=== PATIENT | male | born 1975 ===

== ENCOUNTER 2017-12-18 15:24 | Emergency (ER) | payer MEDICAID ==
[2017-12-18 15:30] VITALS: BP 139/87; PULSE 99; RESP 16; TEMP 97.8; O2SAT 97
--- NOTE | 2017-12-18 15:46 | ED PDOC ---
Upper Extremity Pain/Injury Time Seen by Provider: 12/18/17 15:30 Chief Complaint (Nursing): Upper Extremity Problem/Injury Chief Complaint (Provider): Left elbow pain History Per: Patient History/Exam Limitations: no limitations Onset/Duration Of Symptoms: Days (x3 weeks) Current Symptoms Are (Timing): Still Present Quality: "Pain" Exacerbating Factor(s): Movement Additional Complaint(s): Froilan Saab is a 42 year old male, with no significant past medical history, who presents to the emergency department complaining of left elbow pain onset for x2 weeks. Patient reports he has torn muscles before, and states the pain feels similar. He did not take any pain medications. He denies any trauma or repetitive motion. No further medical complaints. PMD: None provided. Past Medical History Reviewed: Historical Data, Nursing Documentation, Vital Signs Vital Signs: Last Vital Signs Temp 97.8 F 12/18/17 15:28 Pulse 99 H 12/18/17 15:28 Resp 16 12/18/17 15:28 BP 139/87 12/18/17 15:28 Pulse Ox 97 12/18/17 15:28 - Medical History PMH: Asthma Denies: Chronic Kidney Disease - Surgical History Surgical History: No Surg Hx - Family History Family History: States: Unknown Family Hx - Immunization History Hx Tetanus Toxoid Vaccination: No Hx Influenza Vaccination: No Hx Pneumococcal Vaccination: No - Home Medications Home Medications: Ambulatory Orders Medication Instructions Recorded Citalopram Hydrobromide 40 mg PO DAILY 10/30/16 [Citalopram HBr] Prazosin HCl [Minipress] 1 mg PO DAILY 10/30/16 Quetiapine Fumarate [Seroquel] 50 mg PO HS 10/30/16 Quetiapine Fumarate [Seroquel] 100 mg PO HS 10/30/16 hydrOXYzine HCl [Atarax] 50 mg PO Q6 PRN 10/30/16 Naproxen 1 tab PO Q12 PRN #14 tab 12/18/17 - Allergies Allergies/Adverse Reactions: Allergies Allergy/AdvReac Type Severity Reaction Status Date / Time No Known Allergies Allergy Verified 10/30/16 04:02 Review of Systems ROS Statement: Except As Marked, All Systems Reviewed And Found Negative Musculoskeletal: Positive for: Arm Pain (left elbow) Physical Exam - Reviewed Nursing Documentation Reviewed: Yes Vital Signs Reviewed: Yes - Physical Exam Appears: Positive for: Well, Non-toxic, No Acute Distress Head Exam: Positive for: ATRAUMATIC, NORMAL INSPECTION, NORMOCEPHALIC Skin: Positive for: Normal Color, Warm, Dry Eye Exam: Positive for: Normal appearance Neck: Positive for: Painless ROM Respiratory: Negative for: Respiratory Distress Extremity: Positive for: Normal ROM (flex & extend w/ pain), Tenderness (b/l epicondyle. No erythema or effusion. ). Negative for: Deformity, Swelling Neurologic/Psych: Positive for: Alert, Oriented - ECG O2 Sat by Pulse Oximetry: 97 (RA) Pulse Ox Interpretation: Normal - Progress ED Course And Treament: elbow xry: no fracture Medical Decision Making Medical Decision Making: Initial Impression: Elbow pain Initial Plan: --Elbow left 3 views routine [RAD] --reevaluation ~ Scribe Attestation: Documented by Albaro Rodarte, acting as a scribe for Cordelia Carlson PA-C. Provider Scribe Attestation: All medical record entries made by the Scribe were at my direction and personally dictated by me. I have reviewed the chart and agree that the record accurately reflects my personal performance of the history, physical exam, medical decision making, and the department course for this patient. I have also personally directed, reviewed, and agree with the discharge instructions and disposition. Disposition - Clinical Impression Clinical Impression: Lateral epicondylitis - Patient ED Disposition Is Patient to be Admitted: No - Disposition Referrals: Deloris King MD [Staff Provider] - Disposition: Routine/Home Disposition Time: 16:10 Condition: FAIR Prescriptions: Naproxen 1 tab PO Q12 PRN #14 tab PRN Reason: Pain, Moderate (4-7) Instructions: Tennis Elbow (ED) Forms: [employer] (Lithuanian), [employer] ED School/Work Excuse
--- NOTE | 2017-12-18 16:40 | RAD ---
PROCEDURE: Radiographs of the left elbow. HISTORY: ELBOW PAIN COMPARISON: No prior. FINDINGS: BONES: Normal. No fracture. JOINTS: Normal. No osteoarthritis. SOFT TISSUES: Normal. JOINT EFFUSION: None. OTHER FINDINGS: None IMPRESSION: Unremarkable radiographs of the left elbow.
== END 2017-12-18 16:16 | disposition home or self-care (01) ==
LOC: H.ER 15:24
DX: M77.12 Lateral epicondylitis, left elbow (principal); J45.909 Unspecified asthma, uncomplicated

== ENCOUNTER 2018-03-02 16:35 | Emergency (ER) | payer MEDICAID ==
[2018-03-02 16:43] VITALS: BP 132/94; PULSE 95; RESP 16; TEMP 98.4; O2SAT 99
--- NOTE | 2018-03-02 18:01 | ED PDOC ---
HPI: Skin/Bite Injury Time Seen by Provider: 03/02/18 17:35 Chief Complaint (Nursing): Abnormal Skin Integrity Chief Complaint (Provider): Skin Tag History Per: Patient History/Exam Limitations: no limitations Onset/Duration Of Symptoms: Days Current Symptoms Are (Timing): Still Present Quality Of Symptoms: Painful Additional Complaint(s): 42 y/o male presents to the ED with a skin tag in the upper right back area. Patient used a string to tie it off approximately a week and a half ago. Patient states it's painful and thinks it is infected. PMD: None provided Past Medical History Reviewed: Historical Data, Nursing Documentation, Vital Signs Vital Signs: Last Vital Signs Temp 98.4 F 03/02/18 16:41 Pulse 95 H 03/02/18 16:41 Resp 16 03/02/18 16:41 BP 132/94 H 03/02/18 16:41 Pulse Ox 99 03/02/18 18:08 - Medical History PMH: Asthma Denies: Chronic Kidney Disease - Surgical History Other surgeries: right foot sx - Family History Family History: States: Unknown Family Hx - Social History Current smoker - smoking cessation education provided: No Ex-Smoker (has not smoked in the last 12 months): Yes Alcohol: Social Drugs: Cocaine - Immunization History Hx Tetanus Toxoid Vaccination: No Hx Influenza Vaccination: No Hx Pneumococcal Vaccination: No - Home Medications Home Medications: Ambulatory Orders Medication Instructions Recorded Citalopram Hydrobromide 40 mg PO DAILY 10/30/16 [Citalopram HBr] Prazosin HCl [Minipress] 1 mg PO DAILY 10/30/16 Quetiapine Fumarate [Seroquel] 50 mg PO HS 10/30/16 Quetiapine Fumarate [Seroquel] 100 mg PO HS 10/30/16 hydrOXYzine HCl [Atarax] 50 mg PO Q6 PRN 10/30/16 Naproxen 1 tab PO Q12 PRN #14 tab 12/18/17 - Allergies Allergies/Adverse Reactions: Allergies Allergy/AdvReac Type Severity Reaction Status Date / Time No Known Allergies Allergy Verified 10/30/16 04:02 Review of Systems ROS Statement: Except As Marked, All Systems Reviewed And Found Negative Constitutional: Negative for: Fever, Chills Skin: Positive for: Other (skin tag on upper right back) Physical Exam - Reviewed Nursing Documentation Reviewed: Yes Vital Signs Reviewed: Yes - Physical Exam Appears: Positive for: Well, Non-toxic, No Acute Distress Head Exam: Positive for: ATRAUMATIC, NORMAL INSPECTION, NORMOCEPHALIC Skin: Negative for: Normal Color (pedunculated skin lesion, light pink, soft, round, 3 cm in diameter, red string around base of skin tag, no surrounding erythema on skin) Eye Exam: Positive for: EOMI, Normal appearance, PERRL ENT: Positive for: Normal ENT Inspection Neck: Positive for: Normal, Painless ROM, Supple Cardiovascular/Chest: Positive for: Regular Rate, Rhythm. Negative for: Murmur Respiratory: Positive for: Normal Breath Sounds. Negative for: Respiratory Distress Gastrointestinal/Abdominal: Positive for: Normal Exam, Soft Back: Positive for: Normal Inspection. Negative for: L CVA Tenderness, R CVA Tenderness, Vertebral Tenderness Extremity: Positive for: Normal ROM. Negative for: Pedal Edema, Deformity Neurologic/Psych: Positive for: Alert, Oriented (x3). Negative for: Motor/ Sensory Deficits - ECG O2 Sat by Pulse Oximetry: 99 (RA) Pulse Ox Interpretation: Normal Medical Decision Making Medical Decision Making: Time: 16:41 Plan: String cut * Part of string remains embedded in skin * Discussed importance of f/u with dermatology * Scanning Coordinator number given. Disposition - Clinical Impression Clinical Impression: Acrochordon - Patient ED Disposition Is Patient to be Admitted: No Counseled Patient/Family Regarding: Diagnosis, Need For Followup - Disposition Referrals: [facility] [Outside] Disposition: Routine/Home Disposition Time: 18:58 Condition: STABLE Instructions: Skin Tags (Acrochordon) Forms: [employer] (Vietnamese), [facility] ED School/Work Excuse
[2018-03-02] MEDS ORDERED: Naproxen 500 MG TAB PO STA (19:00)
[2018-03-02] MEDS ORDERED: Naproxen 500 MG TAB PO ONE (19:06)
== END 2018-03-02 19:10 | disposition home or self-care (01) ==
LOC: H.ER 16:35
DX: L91.8 Other hypertrophic disorders of the skin (principal); J45.909 Unspecified asthma, uncomplicated

== ENCOUNTER 2018-10-06 13:36 | Emergency (ER) | payer MEDICAID ==
[2018-10-06 13:37] VITALS: BMI 28.0
[2018-10-06 14:52] LABS: BASO # 0.1 K/uL (0.0-0.2); BASO % 0.5 % (0.0-2.0); EOS # 0.5 K/uL (0.0-0.7); EOS % 4.7 % (0.0-4.0); HEMOGLOBIN 15.6 g/dL (12.0-18.0); LYMPH # 2.6 K/uL (1.0-4.3); LYMPH % 24.7 % (20.0-40.0); MEAN CELL VOLUME 88.9 fl (80.0-94.0); MEAN CORPUSCULAR HEMOGLOBIN 29.5 pg (27.0-31.0); MEAN CORPUSCULAR HGB CONC 33.1 g/dL (33.0-37.0); MONO # 0.5 K/uL (0.0-0.8); MONO % 5.2 % (0.0-10.0); NEUT # 6.8 K/uL (1.8-7.0); NEUT % 64.9 % (50.0-75.0); NRBC % 0.3 % (0.0-0.0); RBC 5.3 Mil/uL (4.40-5.90); RED CELL DISTRIBUTION WIDTH 14.4 % (11.5-14.5); WHITE BLOOD COUNT 10.5 K/uL (4.8-10.8)
--- NOTE | 2018-10-06 15:52 | RAD ---
Date of service: 10/06/2018 HISTORY: clearance COMPARISON: 10/30/2016 FINDINGS: LUNGS: No active pulmonary disease. PLEURA: No significant pleural effusion identified, no pneumothorax apparent. CARDIOVASCULAR: No aortic atherosclerotic calcification present. Normal cardiac size. No pulmonary vascular congestion. OSSEOUS STRUCTURES: No significant abnormalities. VISUALIZED UPPER ABDOMEN: Normal. OTHER FINDINGS: None. IMPRESSION: No active disease.
[2018-10-06 15:55] LABS: URINE BILIRUBIN NEGATIVE (NEGATIVE); URINE BLOOD NEGATIVE (NEGATIVE); URINE CLARITY SLIGHTY-CLOUDY (Clear); URINE COLOR YELLOW (YELLOW); URINE GLUCOSE (UA) NEG (Normal); URINE LEUKOCYTE ESTERASE NEG Leu/uL (Negative); URINE PROTEIN NEGATIVE (NEGATIVE); URINE UROBILINOGEN 0.2-1.0 mg/dL (0.2-1.0)
[2018-10-06 16:05] LABS: ACETAMINOPHEN < 10.0 ug/ml (10.0-30.0); SALICYLATE < 1.0 mg/dl
[2018-10-06 16:06] LABS: BARBITURATES, UR NEGATIVE (NEGATIVE); BENZODIAZEPINES, UR NEGATIVE (NEGATIVE); OPIATES, UR NEGATIVE (NEGATIVE); PHENCYCLIDINE, UR NEGATIVE (NEGATIVE)
[2018-10-06 16:06] LABS: ALB/GLOB RATIO 1.4 (1.0-2.1); ALBUMIN 4.5 g/dL (3.5-5.0); ALT/SGPT 81 U/L (21-72); AST/SGOT 34 U/L (17-59); BLOOD UREA NITROGEN 16 mg/dl (9-20); CALCIUM 9.3 mg/dL (8.4-10.2); GFR NON-AFRICAN AMERICAN > 60
--- NOTE | 2018-10-06 16:15 | ED PDOC ---
HPI: Psych/Substance Abuse Time Seen by Provider: 10/06/18 13:50 Chief Complaint (Nursing): Palpitations Chief Complaint (Provider): palpitations History Per: Patient History/Exam Limitations: no limitations Onset/Duration Of Symptoms: Days (x3 weeks), Intermittent Episodes Associated Symptoms: Anxiety. denies: Suicidal Thoughts, Suicidal Plan Additional Complaint(s): Ludwig Saab is a 42 year old male, with a past medical history of asthma, who presents to the emergency department complaining of intermittent palpitations associated with anxiety onset for x3 weeks. Patient reports symptoms began after taking approximately x30 tablets of Vyvanse 70mg in a spam of 2-3 days. Patient states he took them in order to stop auditory hallucinations. He denies any tressa st pain, shortness of breath, hemoptysis, suicidal or homicidal ideation but still has auditory hallucinations just not as strong as before. He denies any history of DVT or PE. No further medical complaints. PMD: None provided. Past Medical History Reviewed: Historical Data, Nursing Documentation, Vital Signs Vital Signs: Last Vital Signs Temp 98.3 F 10/06/18 13:41 Pulse 98 H 10/06/18 13:41 Resp 18 10/06/18 13:41 BP 162/110 H 10/06/18 13:41 Pulse Ox 100 10/06/18 13:41 - Medical History PMH: Asthma Denies: Diabetes, Deep Vein Thrombosis, Hepatitis, HIV, HTN, Pulmonary Embolism, Chronic Kidney Disease, Seizures, Sexually Transmitted Disease - Surgical History Surgical History: No Surg Hx - Family History Family History: States: Unknown Family Hx - Social History Ex-Smoker (has not smoked in the last 12 months): Yes Alcohol: Social - Immunization History Hx Tetanus Toxoid Vaccination: No Hx Influenza Vaccination: No Hx Pneumococcal Vaccination: No - Home Medications Home Medications: Ambulatory Orders Medication Instructions Recorded hydrOXYzine HCl [Atarax] 50 mg PO Q6 PRN 10/30/16 Citalopram [celeXA] 60 mg PO DAILY 09/04/18 Lisdexamfetamine Dimesylate 70 mg PO DAILY 09/04/18 [Vyvanse] Ziprasidone HCl [Geodon] 100 mg PO BID 09/04/18 ARIPiprazole [Abilify] 15 mg PO QPM #30 tab 10/17/18 Albuterol/Ipratropium [Duoneb 3 3 ml INH RQ6 PRN neb 09/12/18 mg/0.5 mg (3 ml) UD] Amoxicillin/Clavulanate [Augmentin 1 tab PO Q12H #10 tab 09/12/18 875 MG-125 MG Tab] Escitalopram [Lexapro] 20 mg PO DAILY #30 tab 09/12/18 QUEtiapine [Seroquel] 100 mg PO HS #30 tab 09/12/18 - Allergies Allergies/Adverse Reactions: Allergies Allergy/AdvReac Type Severity Reaction Status Date / Time No Known Allergies Allergy Verified 10/06/18 13:41 Review of Systems ROS Statement: Except As Marked, All Systems Reviewed And Found Negative Cardiovascular: Positive for: Palpitations. Negative for: Chest Pain Respiratory: Negative for: Shortness of Breath, Hemoptysis Psych: Positive for: Anxiety, Other (auditory hallucinations). Negative for: Suicidal ideation (or homicidal ideation) Physical Exam - Reviewed Nursing Documentation Reviewed: Yes Vital Signs Reviewed: Yes - Physical Exam Appears: Positive for: No Acute Distress Head Exam: Positive for: ATRAUMATIC, NORMAL INSPECTION, NORMOCEPHALIC Skin: Positive for: Normal Color, Warm, Dry Eye Exam: Positive for: Normal appearance, EOMI, PERRL Neck: Positive for: Normal, Painless ROM Cardiovascular/Chest: Positive for: Regular Rate, Rhythm. Negative for: Murmur Respiratory: Positive for: Normal Breath Sounds. Negative for: Respiratory Distress Gastrointestinal/Abdominal: Positive for: Normal Exam, Soft. Negative for: Tenderness, Guarding, Rebound Back: Positive for: Normal Inspection. Negative for: L CVA Tenderness, R CVA Tenderness, Vertebral Tenderness Extremity: Positive for: Normal ROM (upper and lower extremities). Negative for: Deformity, Swelling Neurologic/Psych: Positive for: Alert, Oriented, Mood/Affect (appears jittery but is consolable). Negative for: Motor/Sensory Deficits - Laboratory Results Result Diagrams: 10/06/18 14:41 10/06/18 15:30 - ECG ECG: Positive for: Interpreted By Me ECG Rhythm: Positive for: Sinus Rhythm. Negative for: ST/T Changes Rate: 91 O2 Sat by Pulse Oximetry: 100 (RA) Pulse Ox Interpretation: Normal - Progress ED Course And Treament: Pt. evaluated by Alisia who spoke with Lori under Dr. Chawla supervision and cleared pt. for discharge. On re-evaluation, pt. reports feeling much better. No episodes of palpitations while in ED. pt. appears calm and is cooperative. Denies SI/HI, hallucinations, chest pain, SOB. Medical Decision Making Medical Decision Making: Time: 13:50 Initial Impression: Palpitations Initial Plan: --EKG --Acetaminophen --CMP --Drug screen, urine --Salicylate --Crisis evaluation --CBC w/ differential --Chest portable [RAD] --Ativan 1 mg PO --1:1 Observation --Urinalysis --Reevaluation Case discussed with Ed from poison control who recommends support of care. ------- Scribe Attestation: Documented by Albaro Rodarte, acting as a scribe for Dawson Slaughter PA-C. Provider Scribe Attestation: All medical record entries made by the Scribe were at my direction and personally dictated by me. I have reviewed the chart and agree that the record accurately reflects my personal performance of the history, physical exam, medical decision making, and the department course for this patient. I have also personally directed, reviewed, and agree with the discharge instructions and disposition. Disposition - Clinical Impression Clinical Impression: Anxiety - Patient ED Disposition Is Patient to be Admitted: No - Disposition Disposition: Routine/Home Disposition Time: 18:30 Condition: IMPROVED Additional Instructions: LUDWIG SAAB, thank you for letting us take care of you today. Your provider was Patience Stephens MD and you were treated for PALPITATIONS. The emergency medical care you received today was directed at your acute symptoms. If you were prescribed any medication, please fill it and take as directed. It may take several days for your symptoms to resolve. Return to the Emergency Department if your symptoms worsen, do not improve, or if you have any other problems. Please contact your doctor or call one of the physicians/clinics you have been referred to that are listed on the Patient Visit Information form that is included in your discharge packet. Bring any paperwork you were given at discharge with you along with any medications you are taking to your follow up visit. Our treatment cannot replace ongoing medical care by a primary care provider outside of the emergency department. Thank you for allowing the [facility] team to be part of your care today. If you had an X-Ray or CT scan: A Radiologist will review the ED reading if any change in treatment is needed we will contact you. If you had a blood, urine, or wound culture: It will take several days for the results, if any change in treatment is needed we will contact you. If you had an STI test: It will take 48 hours for the results. Please call after 1 week if you have not heard back. Instructions: Anxiety, Adult (DC) Forms: [facility] (Slovak)
[2018-10-06 18:36] VITALS: BP 134/75; RESP 14; TEMP 98.2; O2SAT 100
[2018-10-06 18:41] VITALS: PULSE 91
--- NOTE | 2018-10-07 08:44 | CARD ---
APPROVED REPORT Date of service: 10/06/2018 EKG Measurement Heart [id number] <Conclusion> Normal sinus rhythm Normal ECG
== END 2018-10-06 18:55 | disposition home or self-care (01) ==
LOC: H.ER 13:36
DX: F41.9 Anxiety disorder, unspecified (principal)

== ENCOUNTER 2018-11-26 13:44 | Emergency (ER) | payer MEDICAID ==
[2018-11-26 13:57] VITALS: BMI 36.5
[2018-11-26 13:59] VITALS: BP 133/82; PULSE 84; TEMP 97.3
[2018-11-26] MEDS ORDERED: Albuterol-Ipratrop 3 mg / 0.5 (3 ml) UD INH STA ×2 (14:10)
[2018-11-26] MEDS ORDERED: Albuterol-Ipratrop 3 mg / 0.5 (3 ml) UD ONE (14:16)
[2018-11-26 14:24] VITALS: RESP 18
--- NOTE | 2018-11-26 15:02 | ED PDOC ---
HPI: SOB/CHF/COPD Time Seen by Provider: 11/26/18 14:06 Chief Complaint (Nursing): Respiratory Distress History Per: Patient History/Exam Limitations: no limitations Onset/Duration Of Symptoms: Days Current Symptoms Are (Timing): Still Present Initiating Event: Out Of Medications Additional Complaint(s): Hx of asthma (no intubations) presenting with wheezing, states he has not had an exacerbation for a year and does not have any meds. 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 Denies fevers. Past Medical History Reviewed: Historical Data, Nursing Documentation, Vital Signs Vital Signs: Last Vital Signs Temp 97.3 F L 11/26/18 13:57 Pulse 84 11/26/18 13:57 Resp 18 11/26/18 14:21 BP 133/82 11/26/18 13:57 Pulse Ox 98 11/26/18 14:21 - Medical History PMH: Asthma Denies: Diabetes, Deep Vein Thrombosis, Hepatitis, HIV, HTN, Pulmonary Embolism, Chronic Kidney Disease, Seizures, Sexually Transmitted Disease - Family History Family History: States: Unknown Family Hx - Immunization History Hx Tetanus Toxoid Vaccination: No Hx Influenza Vaccination: No Hx Pneumococcal Vaccination: No - Home Medications Home Medications: Ambulatory Orders Medication Instructions Recorded hydrOXYzine HCl [Atarax] 50 mg PO Q6 PRN 10/30/16 Citalopram [celeXA] 60 mg PO DAILY 09/04/18 Lisdexamfetamine Dimesylate 70 mg PO DAILY 09/04/18 [Vyvanse] Ziprasidone HCl [Geodon] 100 mg PO BID 09/04/18 ARIPiprazole [Abilify] 15 mg PO QPM #30 tab 09/12/18 Albuterol/Ipratropium [Duoneb 3 3 ml INH RQ6 PRN neb 09/12/18 mg/0.5 mg (3 ml) UD] Amoxicillin/Clavulanate [Augmentin 1 tab PO Q12H #10 tab 09/12/18 875 MG-125 MG Tab] Escitalopram [Lexapro] 20 mg PO DAILY #30 tab 09/12/18 QUEtiapine [Seroquel] 100 mg PO HS #30 tab 09/12/18 Albuterol HFA [Ventolin HFA 90 2 puff IH [id number] #1 puff 11/26/18 mcg/actuation (8 g)] - Allergies Allergies/Adverse Reactions: Allergies Allergy/AdvReac Type Severity Reaction Status Date / Time No Known Allergies Allergy Verified 11/26/18 14:10 Review of Systems ROS Statement: Except As Marked, All Systems Reviewed And Found Negative Respiratory: Positive for: Wheezing Physical Exam - Reviewed Nursing Documentation Reviewed: Yes Vital Signs Reviewed: Yes - Physical Exam Appears: Positive for: Well, Non-toxic, No Acute Distress Head Exam: Positive for: ATRAUMATIC, NORMAL INSPECTION, NORMOCEPHALIC Skin: Positive for: Normal Color, Warm, DRY Eye Exam: Positive for: EOMI, Normal appearance, PERRL ENT: Positive for: Normal ENT Inspection Neck: Positive for: Normal, Painless ROM Cardiovascular/Chest: Positive for: Regular Rate, Rhythm Respiratory: Positive for: Wheezing. Negative for: Respiratory Distress Gastrointestinal/Abdominal: Positive for: Normal Exam, Soft Back: Positive for: Normal Inspection Extremity: Positive for: Normal ROM Neurologic/Psych: Positive for: Alert, Oriented - ECG O2 Sat by Pulse Oximetry: 98 Medical Decision Making Medical Decision Making: PAtient presenting with mild ashtma exacerbation --No respiratory distress --Vitals stable --Not concerned for PNA, PTX, PE at this time --Will treat with nebuilzer and re-eval 330 --No longer wheezing --Well appearing --Stable for discharge --Advised patient to followup in clinic Disposition - Clinical Impression Clinical Impression: Asthma - Patient ED Disposition Is Patient to be Admitted: No - Disposition Referrals: [facility] [Outside] Disposition: Routine/Home Disposition Time: 15:34 Condition: IMPROVED Prescriptions: Albuterol HFA [Ventolin HFA 90 mcg/actuation (8 g)] 2 puff IH [id number] #1 puff Instructions: Asthma, Adult (DC) Forms: [email or web address] (Cuban)
[2018-11-26 15:55] VITALS: O2SAT 97
== END 2018-11-26 15:34 | disposition home or self-care (01) ==
LOC: H.ER 13:44
DX: J45.909 Unspecified asthma, uncomplicated (principal)

== ENCOUNTER 2018-12-26 12:49 | Inpatient (IN) | payer MEDICAID ==
[2018-12-26 12:49] VITALS: BMI 36.5
--- NOTE | 2018-12-26 13:33 | ED PDOC ---
HPI: Psych/Substance Abuse Time Seen by Provider: 12/26/18 12:56 Chief Complaint (Nursing): Psychiatric Evaluation Chief Complaint (Provider): Psychiatric Evaluation History Per: Patient History/Exam Limitations: no limitations Onset/Duration Of Symptoms: Days (x1 week) Current Symptoms Are (Timing): Still Present Additional Complaint(s): Patient is a 43 y/o male with a past medical history of asthma, depression, schizophrenia, and pre-diabetes who was brought into the ED by EMS from [facility] [place] for psychiatric evaluation. Patient was expressing to his ther apist thoughts of suicidal ideation, which included jumping in front of a train or jumping into the [place]. Patient reports chronic auditory hallucinations, worsening for the past week which is contributing to his suicidal ideation because the voices are telling him to "end it". Patient states he has been compliant with his Geodon and Celexa medication. Patient denies homicidal ideation, visual hallucinations, and any physical complaints. PCP: None Provided Past Medical History Reviewed: Historical Data, Nursing Documentation, Vital Signs Vital Signs: Last Vital Signs Temp 98.1 F 12/26/18 12:51 Pulse 70 12/26/18 12:51 Resp 16 12/26/18 12:51 BP 152/109 H 12/26/18 12:51 Pulse Ox 98 12/26/18 12:51 - Medical History PMH: Asthma, Depression, Diabetes (pre), Schizophrenia - Surgical History Other surgeries: ORIF of right foot - Family History Family History: States: Unknown Family Hx - Living Arrangements Living Arrangements: Other (Homeless; [facility]) - Social History Current smoker - smoking cessation education provided: No Alcohol: Other (clean for 3 months) Drugs: Cocaine (however, 3 months clean) - Home Medications Home Medications: Ambulatory Orders Medication Instructions Recorded Albuterol HFA [Ventolin HFA 90 2 puff IH Q6 PRN 12/26/18 mcg/actuation (8 g)] Citalopram Hydrobromide 40 mg PO DAILY 12/26/18 [Citalopram HBr] Ziprasidone [Geodon Cap] 40 mg PO Q12 12/26/18 Ziprasidone [Geodon Cap] 60 mg PO Q12 12/26/18 hydrOXYzine HCl [Atarax] 50 mg PO Q8 12/26/18 - Allergies Allergies/Adverse Reactions: Allergies Allergy/AdvReac Type Severity Reaction Status Date / Time No Known Allergies Allergy Verified 12/26/18 12:51 Review of Systems ROS Statement: Except As Marked, All Systems Reviewed And Found Negative Constitutional: Negative for: Other (physical complaints) Neurological: Positive for: Other (auditory hallucinations) Psych: Positive for: Suicidal ideation. Negative for: Other (homicidal ideation or visual hallucinations) Physical Exam - Reviewed Nursing Documentation Reviewed: Yes Vital Signs Reviewed: Yes - Physical Exam Comments: GENERAL APPEARANCE: Patient is awake, alert, oriented x 3, in no acute distress. Appears preoccupied. SKIN: Warm, dry; (-) cyanosis. ENMT: Mucous membranes moist. Airway patent, (-) stridor. NECK: Supple, FROM CHEST AND RESPIRATORY: (-) rales, (-) rhonchi, (-) wheezes; breath sounds equal bilaterally. Respirations even and nonlabored. HEART AND CARDIOVASCULAR: (-) irregularity ABDOMEN AND GI: Soft (-) distention (-) guarding, (-) rebound EXTREMITIES: (-) deformity NEURO AND PSYCH: Mental status as above; Affect is flat. (-) focal findings. Gait: steady. Speech: clear. (-) facial asymmetry (-) aphasia - Laboratory Results Result Diagrams: 12/26/18 15:49 12/26/18 15:49 - ECG O2 Sat by Pulse Oximetry: 98 (RA) Pulse Ox Interpretation: Normal Medical Decision Making Medical Decision Making: Time: 1257 Impression: Psychiatric Evaluation Plan: Crisis Evaluation 1:1 Observation Re-evaluation Time: 1415 Patient resting comfortably. Pending crisis evaluation. Time: 1520 Per crisis evaluation, patient to be admitted for depression and PTSD per Dr. Chawla. CBC, CMP, serum alcohol, UA, UDS, Chest x-ray, and EKG ordered for medical clearance. 1545 EKG: NSR @ 69bpm, (-) ST elevation, QTc 424 repeat BP: 144/88 1625 CBC and CMP grossly unremarkable. Serum alcohol < 10. CXR reviewed, radiology report follows Date of service: 12/26/2018 PROCEDURE: CHEST RADIOGRAPH, 1 VIEW HISTORY: psych admit COMPARISON: 10/06/2018 FINDINGS: LUNGS: Clear. PLEURA: No pneumothorax or pleural fluid seen. CARDIOVASCULAR: No aortic atherosclerotic calcification present. Normal. OSSEOUS STRUCTURES: No significant abnormalities. VISUALIZED UPPER ABDOMEN: Normal. OTHER FINDINGS: None. IMPRESSION: No active disease.No interval pathology noted. 1635 Utox: negative 1700 U/A: no evidence of UTI Patient is medically stable for psychiatric admission. Patient agreeable to admission. Vitals stable. Scribe Attestation: Documented by Santana Hernandez, acting as a scribe for GORDO Vera. Provider Scribe Attestation: All medical record entries made by the Scribe were at my direction and personally dictated by me. I have reviewed the chart and agree that the record accurately reflects my personal performance of the history, physical exam, medical decision making, and the department course for this patient. I have also personally directed, reviewed, and agree with the discharge instructions and disposition. Disposition - Clinical Impression Clinical Impression: Depression, PTSD (post-traumatic stress disorder) - Patient ED Disposition Is Patient to be Admitted: Yes Discussed With : Radha Chawla Doctor Will See Patient In The: Hospital Counseled Patient/Family Regarding: Studies Performed, Diagnosis - Disposition Disposition Time: 15:20 Condition: STABLE - Pt Status Changed To: Hospital Disposition Of: Inpatient (psych) - Admit Certification Admit to Inpatient:: After my assessment, the patient will require hospitalization for at least two midnights. This is because of the severity of symptoms shown, intensity of services needed, and/or the medical risk in this patient being treated as an outpatient. - POA Present On Arrival: None Results - Diagnostic Imaging Results Radiology Results Chest X-Ray 12/26/18 15:21
--- NOTE | 2018-12-26 16:00 | RAD ---
Date of service: 12/26/2018 PROCEDURE: CHEST RADIOGRAPH, 1 VIEW HISTORY: psych admit COMPARISON: 10/06/2018 FINDINGS: LUNGS: Clear. PLEURA: No pneumothorax or pleural fluid seen. CARDIOVASCULAR: No aortic atherosclerotic calcification present. Normal. OSSEOUS STRUCTURES: No significant abnormalities. VISUALIZED UPPER ABDOMEN: Normal. OTHER FINDINGS: None. IMPRESSION: No active disease.No interval pathology noted.
[2018-12-26 16:01] LABS: BASO % 0.3 % (0.0-2.0); EOS # 0.6 K/uL (0.0-0.7); EOS % 6.8 % (0.0-4.0); HEMOGLOBIN 14.8 g/dL (12.0-18.0); LYMPH # 2.7 K/uL (1.0-4.3); LYMPH % 32.8 % (20.0-40.0); MEAN CELL VOLUME 88.1 fl (80.0-94.0); MEAN CORPUSCULAR HEMOGLOBIN 28.9 pg (27.0-31.0); MEAN CORPUSCULAR HGB CONC 32.8 g/dL (33.0-37.0); MEAN PLATELET VOLUME 8.6 fl (7.2-11.7); MONO # 0.5 K/uL (0.0-0.8); NEUT # 4.4 K/uL (1.8-7.0); NEUT % 54.1 % (50.0-75.0); NRBC % 0.2 % (0.0-0.0); RBC 5.1 Mil/uL (4.40-5.90); RED CELL DISTRIBUTION WIDTH 13.5 % (11.5-14.5); WHITE BLOOD COUNT 8.2 K/uL (4.8-10.8)
[2018-12-26 16:18] LABS: ALB/GLOB RATIO 1.4 (1.0-2.1); ALBUMIN 4.4 g/dL (3.5-5.0); ALT/SGPT 42 U/L (21-72); AST/SGOT 40 U/L (17-59); BLOOD UREA NITROGEN 16 mg/dl (9-20); CALCIUM 9.3 mg/dL (8.4-10.2); GFR NON-AFRICAN AMERICAN > 60
[2018-12-26 16:34] LABS: BARBITURATES, UR NEGATIVE (NEGATIVE); BENZODIAZEPINES, UR NEGATIVE (NEGATIVE); OPIATES, UR NEGATIVE (NEGATIVE); PHENCYCLIDINE, UR NEGATIVE (NEGATIVE)
[2018-12-26 17:02] LABS: URINE BILIRUBIN NEGATIVE (NEGATIVE); URINE BLOOD NEGATIVE (NEGATIVE); URINE CLARITY CLEAR (Clear); URINE COLOR YELLOW (YELLOW); URINE GLUCOSE (UA) NEG (NEGATIVE); URINE LEUKOCYTE ESTERASE NEG Leu/uL (Negative); URINE PROTEIN NEGATIVE (NEGATIVE); URINE UROBILINOGEN 0.2-1.0 mg/dL (0.2-1.0)
[2018-12-26] MEDS ORDERED: DiphenhydrAMINE 50 mg/ml Inj IM PRN (18:35)
[2018-12-26] MEDS ORDERED: Alum-Mag Hydrox-Simethicone Susp (30 mL) PO PRN (18:35)
[2018-12-26] MEDS ORDERED: Magnesium Hydroxide Susp 30 ml UD PO PRN (18:35)
--- NOTE | 2018-12-26 20:44 | PCM.BM ---
<Arielle Claros - Last Filed: 12/26/18 20:44> Treatment assets and liabiliti Patient Assests: cooperative, self-reliant, ADL independent, negotiates basic needs Patient Liabilities: live alone, financial problems, poor support system, medical problems - Milieu Protocol Maintain good personal hygiene: daily Encourage regular showers, other Remind patient to perform daily oral care Conduct patient checks and document Observation sheet: Q15 minutes Maintain personal safety: daily Educate patient to report safety concerns to staff, every shift Monitor environment for contraband/sharps Medication safety: Monitor for expected outcome, potential side effects: every shift, Assess barriers to learning: every shift, Assess readiness for medication education: every shift <Damaris Muniz - Last Filed: 12/31/18 16:39> Treatment assets and liabiliti Patient Assests: adapts well, cooperative, educated (Pt. reports partial college education with [employer]. ), self-reliant, ADL independent, good support system (Pt. identifies mother as primary support. ), good past tx response, cognitively intact (Pt. 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 staying at [facility] for 2 months. Pt. previously residing with mother until asked to leave secondary to mothers Section 8 voucher. ), poor support system, substance abuse (Pt. reports hx of ETOH (last use 3-4 months ago) and cocaine abuse (last use 3 weeks ago).), medical problems (Pt. reports hx of asthma and arrhythmia. Please see H&P.) Family Contact Family involvement: Family/SO is involved Family contact: Patient agrees to contact, Family has been contacted by patient, Telephone contact initiated by staff Family contact name: Barbara Saab [phone] Family contacted how many times per week?: 2 Family contact comment: Junior Linux Administrator placed call to pts mother/primary support (Barbara Saab [phone]) to discuss pts progress on 3NP and address family concerns. Pts mother reported having visited patient multiple times since pts admission and having observed significant progress in pts mood. Barbara reported that patient is speaking "more normally" and appears "happier and more organized". Pts mother expressed believing that pt. is approaching baseline. Necessary medication changes discussed. Pts mother expressed having been informed by both pt. and staff research associate that Geodon had to be discontinued secondary to health concerns. Pts mother reported that although pt. can no longer reside with her, she continues to speak with pt. daily and visits him in the community weekly. Junior Linux Administrator to continue providing pts mother with clinical updates regarding pts progress and discharge planning. - Outside Agency Agency 1 Care involvment: Following patient during stay, Information-sharing, Other Agency contact name: [facility] Agency contact number: [phone] Agency 2 Care involvment: Following patient during stay, Information-sharing, Other Agency contact name: [facility] Darling Canales Agency contact number: [phone] - Goals for Treatment Patient goals for treatment: Patient to continue stabilization on 3NP through medication management and group/supportive therapy to address sxs of depression and eliminate SI/AH. Patient to be encouraged to attend groups regularly to promote self-awareness, sobriety, and improve insight, compliance, coping skills and self-esteem. Patient to be provided with referral for appropriate level of aftercare to reduce risk of future hospitalizations and ensure safety in the community. Pt. identified "feeling better" as primary tx goal. Discharge/Continuing Care - Education Needs Education Needs: Family Medication, Family Diagnosis/Disease Process, Family Coping Skills, Family Aftercare Safety Plan, Patient Medication, Patient Diagnosis/Disease Process, Patient Coping Skills, Patient Community resources, Patient Aftercare Safety Plan - Discharge Discharge Criteria: Tolerates medication w/o severe side effects, Free of Suicidal thoughts, Free of agitation, Normal sleep pattern, Ability to care for self Discharge to:: Care Home - Treatment Team Participation Patient/Family/SO Statement: 12/31/18 16:42 LATE NOTE: Patient was brought into tx team today to discuss progress on 3NP and tx goals. Patient presented with sxs of depression. Pt. presented as internally preoccupied, with poor focus, and psychomotor retardation. Speech: underproductive (slow/low delayed responses). Pt. continued to report sxs of depression as exhibited by passive suicidal ideations, auditory hallucinations, sleep disturbances and feelings of hopelessness in regards to possibility of improvement of psychiatric sxs. Pt. reported decrease in SI and ability to contract for safety on 3NP. Pt. reported improvement in intensity/frequency of AH, stating Theyre calmer. Recommended medication management discussed at length. Pt. agreeable. Pt. more easily engaged in discussion regarding tx than upon admission. Importance of sleep hygiene and participation in unit milieu discussed. Pt expressed understanding of the above. Initialized on 12/28/18 16:25 - END OF NOTE Discussed with Family/SO: Yes Was Patient/Family/SO present at Treatment Team Meeting: Yes <Matt Arreola - Last Filed: 01/03/19 13:18> - Diagnosis (1) Schizoaffective disorder Status: Acute Interventions: 01/03/19 13:17 PSYCHOTHERAPY, PHARMACOTHERAPY
[2018-12-27 08:36] LABS: T4 7.68 ug/dl (5.5-11.0)
--- NOTE | 2018-12-27 09:53 | CP.PCM.CON ---
History of Present Illness - History of Present Illness History of Present Illness: 43 yo male with history of Asthma admitted to psyche unit because of suicidal ideation. Review of Systems - Review of Systems All systems: reviewed and no additional remarkable complaints except (aside from those mentioned above, 12 point system review were negative by me) Past Patient History - Tetanus Immunizations Tetanus Immunization: Unknown - Past Medical History & Family History Past Medical History?: Yes - Past Social History Smoking Status: Never Smoked Chewing Tobacco Use: No Cigar Use: No Alcohol: Other (clean for 3 months) Drugs: Cocaine (however, 3 months clean) - CARDIAC Hx Cardiac Disorders: No Hx Hypertension: No - PULMONARY Hx Respiratory Disorders: Yes Hx Asthma: Yes - NEUROLOGICAL Hx Neurological Disorder: No Hx Seizures: No - HEENT Hx HEENT Problems: No - RENAL Hx Chronic Kidney Disease: No - ENDOCRINE/METABOLIC Hx Endocrine Disorders: No - HEMATOLOGICAL/ONCOLOGICAL Hx Blood Disorders: No Hx Human Immunodeficiency Virus (HIV): No - INTEGUMENTARY Hx Dermatological Problems: No - MUSCULOSKELETAL/RHEUMATOLOGICAL Hx Musculoskeletal Disorders: Yes (rt foot sx) Hx Falls: No - GASTROINTESTINAL Hx Gastrointestinal Disorders: No - GENITOURINARY/GYNECOLOGICAL Hx Genitourinary Disorders: No Hx Sexually Transmitted Disorders: No - PSYCHIATRIC Hx Substance Use: Yes - SURGICAL HISTORY Hx Surgeries: Yes Other/Comment: right foot surgery , 12 years ago - ANESTHESIA Hx Anesthesia: Yes Hx Anesthesia Reactions: No Meds Allergies/Adverse Reactions: Allergies Allergy/AdvReac Type Severity Reaction Status Date / Time No Known Allergies Allergy Verified 12/26/18 12:51 - Medications Medications: Current Medications Acetaminophen (Tylenol 325mg Tab) 650 mg PO Q4 PRN PRN Reason: Pain, moderate (4-7) Al Hydrox/Mg Hydrox/Simethicone (Maalox Plus 30 Ml) 30 ml PO Q4 PRN PRN Reason: Dyspepsia Diphenhydramine HCl (Benadryl) 50 mg IM Q6 PRN PRN Reason: Extrapyramidal S/S Unable PO Diphenhydramine HCl (Benadryl) 50 mg PO Q6 PRN PRN Reason: Extrapyramidal Symptoms Haloperidol (Haldol) 5 mg PO Q4 PRN PRN Reason: Agitation Haloperidol Lactate (Haldol) 5 mg IM Q4 PRN PRN Reason: Agitation, Unable to Take PO Hydroxyzine Pamoate (Vistaril) 50 mg PO Q8 PRN PRN Reason: Anxiety Lorazepam (Ativan) 2 mg IM Q4 PRN PRN Reason: Anxiety/Agitation,Unable PO Magnesium Hydroxide (Milk Of Magnesia) 30 ml PO HS PRN PRN Reason: Constipation Trazodone HCl (Desyrel) 100 mg PO HS PRN PRN Reason: Insomnia Last Admin: 12/26/18 21:49 Dose: 100 mg Ziprasidone (Geodon Cap) 80 mg PO HS DANIEL Last Admin: 12/26/18 21:49 Dose: 80 mg Physical Exam - Constitutional Appears: No Acute Distress - Head Exam Head Exam: ATRAUMATIC - Eye Exam Eye Exam: absent: Scleral icterus - ENT Exam ENT Exam: Mucous Membranes Moist - Neck Exam Neck exam: Negative for: Meningismus - Respiratory Exam Respiratory Exam: absent: Rales, Rhonchi, Wheezes, Respiratory Distress - Cardiovascular Exam Cardiovascular Exam: REGULAR RHYTHM, +S1, +S2 - GI/Abdominal Exam GI & Abdominal Exam: Soft. absent: Tenderness - Rectal Exam Rectal Exam: Deferred - Neurological Exam Neurological exam: Alert, Oriented x3 - Psychiatric Exam Psychiatric exam: Normal Affect - Skin Skin Exam: Dry, Intact Results - Vital Signs Recent Vital Signs: Last Vital Signs Temp 98.0 F 12/27/18 09:37 Pulse 81 12/27/18 09:37 Resp 19 12/27/18 09:37 BP 137/100 H 12/27/18 09:37 Pulse Ox 99 12/26/18 20:30 - Labs Result Diagrams: 12/26/18 15:49 12/26/18 15:49 Labs: Laboratory Results - last 24 hr 12/26/18 12/26/18 12/26/18 15:49 15:49 15:59 WBC 8.2 RBC 5.10 Hgb 14.8 Hct 44.9 MCV 88.1 MCH 28.9 MCHC 32.8 L RDW 13.5 Plt Count 190 MPV 8.6 Neut % (Auto) 54.1 Lymph % (Auto) 32.8 [place] % (Auto) 6.0 Eos % (Auto) 6.8 H Baso % (Auto) 0.3 Neut # (Auto) 4.4 Lymph # (Auto) 2.7 [place] # (Auto) 0.5 Eos # (Auto) 0.6 Baso # (Auto) 0.0 Sodium 137 Potassium 3.9 Chloride 96 L Carbon Dioxide 28 Anion Gap 17 BUN 16 Creatinine 1.2 Est GFR ( Amer) > 60 Est GFR (Non-Af Amer) > 60 Random Glucose 100 Calcium 9.3 Total Bilirubin 0.4 AST 40 ALT 42 Alkaline Phosphatase 58 Total Protein 7.7 Albumin 4.4 Globulin 3.3 Albumin/Globulin Ratio 1.4 Triglycerides Cholesterol LDL Cholesterol Direct HDL Cholesterol Thyroxine (T4) TSH 3rd Generation Urine Color Urine Clarity Urine pH Ur Specific [place] Urine Protein Urine Glucose (UA) Urine Ketones Urine Blood Urine Nitrate Urine Bilirubin Urine Urobilinogen Ur Leukocyte Esterase Urine RBC (Auto) Urine Microscopic WBC Urine Opiates Screen Negative Urine Methadone Screen Negative Ur Barbiturates Screen Negative Ur Phencyclidine Scrn Negative Ur Amphetamines Screen Negative U Benzodiazepines Scrn Negative U Oth Cocaine Metabols Negative U Cannabinoids Screen Negative Alcohol, Quantitative < 10 12/26/18 12/27/18 15:59 07:30 WBC RBC Hgb Hct MCV MCH MCHC RDW Plt Count MPV Neut % (Auto) Lymph % (Auto) [place] % (Auto) Eos % (Auto) Baso % (Auto) Neut # (Auto) Lymph # (Auto) [place] # (Auto) Eos # (Auto) Baso # (Auto) Sodium Potassium Chloride Carbon Dioxide Anion Gap BUN Creatinine Est GFR ( Amer) Est GFR (Non-Af Amer) Random Glucose Calcium Total Bilirubin AST ALT Alkaline Phosphatase Total Protein Albumin Globulin Albumin/Globulin Ratio Triglycerides 188 H D Cholesterol 196 LDL Cholesterol Direct 117 HDL Cholesterol 45 Thyroxine (T4) 7.68 TSH 3rd Generation 2.23 Urine Color Yellow Urine Clarity Clear Urine pH 6.0 Ur Specific [place] 1.018 Urine Protein Negative Urine Glucose (UA) Neg Urine Ketones Negative Urine Blood Negative Urine Nitrate Negative Urine Bilirubin Negative Urine Urobilinogen 0.2-1.0 Ur Leukocyte Esterase Neg Urine RBC (Auto) < 1 Urine Microscopic WBC < 1 Urine Opiates Screen Urine Methadone Screen Ur Barbiturates Screen Ur Phencyclidine Scrn Ur Amphetamines Screen U Benzodiazepines Scrn U Oth Cocaine Metabols U Cannabinoids Screen Alcohol, Quantitative Assessment & Plan (1) Suicidal ideations Status: Acute Comment: psyche is managing
--- NOTE | 2018-12-27 11:23 | PCM.PSYCH ---
Initial Psychiatric Evaluation - Initial Psychiatric Evaluation Type of Admission: Voluntary Legal Status: Capacity Chief Complaint (in patient's own words): I keep thinking about ending my life History of Present Illness and Precipitating Events: pt is 43 ys old male with previous diagnosis of schizoaffective disorder, cocaine and stimulant abuse, was referred by his out patient psychiatrist to ER due to suicidal ideation [place], pt has been increasingly depressed for the past few months as he became homeless , living in a jail and with multiple financial difficulties , pt reported he has been experiencing auditory hallucinations, telling him to hurt himself and that he continues to contemplate suicide , reported poor sleep , low energy poor motivation, not attending to ADL'S , denied active thoughts of self harm on the unit denied homicidal ideation pt reported occasional cocaine abuse last few weeks ago , utox negative Dr. Hernandez / collateral information. According to Dr. Hernandez, the patient has not been forthcoming. The patient has been feeling very suicidal for quite some time. In the middle of October, the patient has been living in [facility], due to being kicked out since she is part of a section 8. The patient has a history of hearing voices. A few days ago, the patient was going to the [employer], but then stopped himself. The pt will be referred to Partial Care, but does not seem to be comfortable w/ going to Partial Care. According to Dr. Hernandez, the patient doesnt do very well w/ change. Current Medications: Active Medications Generic Name Dose Route Start Last Admin Trade Name Freq PRN Reason Stop Dose Admin Acetaminophen 650 mg 12/26/18 18:35 Tylenol 325mg Tab PO Q4 PRN Pain, moderate (4-7) Al Hydrox/Mg Hydrox/Simethicone 30 ml 12/26/18 18:35 Maalox Plus 30 Ml PO Q4 PRN Dyspepsia Diphenhydramine HCl 50 mg 12/26/18 18:35 Benadryl IM Q6 PRN Extrapyramidal S/S Unable PO Diphenhydramine HCl 50 mg 12/26/18 18:35 Benadryl PO Q6 PRN Extrapyramidal Symptoms Haloperidol 5 mg 12/26/18 18:35 Haldol PO Q4 PRN Agitation Haloperidol Lactate 5 mg 12/26/18 18:35 Haldol IM Q4 PRN Agitation, Unable to Take PO Hydroxyzine Pamoate 50 mg 12/26/18 18:43 Vistaril PO Q8 PRN Anxiety Lorazepam 2 mg 12/26/18 18:35 Ativan IM Q4 PRN Anxiety/Agitation,Unable PO Magnesium Hydroxide 30 ml 12/26/18 18:35 Milk Of Magnesia PO HS PRN Constipation Trazodone HCl 100 mg 12/26/18 18:43 12/26/18 21:49 Desyrel PO 100 mg HS PRN Administration Insomnia Venlafaxine HCl 37.5 mg 12/28/18 09:00 Effexor Xr PO DAILY DANIEL Ziprasidone 80 mg 12/26/18 22:00 12/26/18 21:49 Geodon Cap PO 80 mg HS DANIEL Administration Ziprasidone 80 mg 12/27/18 11:15 Geodon Cap PO DAILY DANIEL Past Psychiatric History - Past Psychiatric History Explanation of prior treatment: about five hospitalizations in past five years , partial compliance History of ETOH/Drug Use: cocaine and stimulants abuse Pertinent Medical Hx (Current Medical&Sleep Prob, Allergies): Allergies Allergy/AdvReac Type Severity Reaction Status Date / Time No Known Allergies Allergy Verified 12/26/18 12:51 Albuterol HFA [Ventolin HFA 90 mcg/actuation (8 g)] 2 puff IH Q6 PRN 12/26/18 Citalopram Hydrobromide [Citalopram HBr] 40 mg PO DAILY 12/26/18 Ziprasidone [Geodon Cap] 40 mg PO Q12 12/26/18 Ziprasidone [Geodon Cap] 60 mg PO Q12 12/26/18 hydrOXYzine HCl [Atarax] 50 mg PO Q8 12/26/18 Mental Status Examination - Personal Presentation Personal Presentation: Looks older than stated age Additional comments: unkempt, disheveled - Affect Affect: Constricted, Depressed - Motor Activity Motor Activity: Psychomotor Retardation - Reliability in Providing Information Reliability in Providing Information: Poor, due to alteration in thoughts, Poor, due to altered mood - Speech Speech: Tangential - Mood Mood: Depressed, Anxious - Formal Thought Process Formal Thought Process: Hallucinations - Hallucinations/Delusions Hallucinations: Auditory - Obsessions/Compulsions Obsessions: No Compulsions: No - Cognitive Functions Orientation: Person, Place Sensorium: Alert Attention/Concentration: Easily distracted Judgement: Imparied, as evidence by: Poor judgement, Imparied, as evidence by: Lack of insight into illness - Risk Risk: Suicidal, Diminished functioning - Strength & Assets Inventory Strength & Assets Inventory: Life experience - Limitations Additional comments: financial difficulties DSM 5 DX - DSM 5 DSM 5 Diagnosis: schizoaffective disorder depressed cocaie abuse - Recommended/Plan of Treatment Treatment Recommendations and Plan of Treatment: pt will be placed on GEodon 80mg bid/ follow up on EKG start effexor 37.5mg daily/ increase gradually CBT, motivatioanl , group therapy
--- NOTE | 2018-12-27 11:57 | CARD ---
APPROVED REPORT Date of service: 12/26/2018 EKG Measurement Heart [id number] <Conclusion> Normal sinus rhythm Normal ECG
[2018-12-28] MEDS ORDERED: Venlafaxine 37.5 mg ER Cap PO SCH (09:00)
--- NOTE | 2018-12-28 15:27 | PCM.PYCHPN ---
Psychiatric Progress Note - Psychiatric Progress Note Patient seen today, length of contact: pt evaluated discussed with team chart reviewed Patient Chief Complaint: I am feeling down and worthless Problems Identified/Issues Discussed: pt evaluated with treatment team presenting with depressed mood and affect, slow speech with poverty of thought content,low energy, reported continues to feel hopeless and helpless, continues to experience non command auditory lara llucinations, CBT provided, encourage dpt to attend groups pt denied current active thoughts of self harm on the unit discussed with pt results of his ECG with QTC prolngation, discussed the need to cross titrate geodone with risperidone , pt agreed, Medical Problems: about five hospitalizations in past five years , partial compliance DSM 5 Symptoms Update: schizoaffective disorder Medication Change: Yes (start risperidone) Medical Record Reviewed: Yes Mental Status Examination - Cognitive Function Orientation: Person, Place Memory: Intact Attention: Poor Concentration: Poor Association: WNL Fund of Knowledge: Poor Decription of patient's judgement and insights: partial insight poor judgment - Mood Mood: Depressed, Anxious - Affect Affect: Constricted, Depressed - Formal Thought Process Formal Thought Process: Hallucinations - Suicidal Ideation Suicidal Ideation: Yes - Homicidal Ideation Homicidal Ideation: No Goal/Treatment Plan - Goal/Treatment Plan Need for Continued Stay: Severe depression anxiety, Discharge may exacerbated symptoms Progress Toward Problem(s) and Goals/Treatment Plan: discontinue geodon gradually start risperidone 2mg qhs qith cogentin 1mg qhs, increase gradually discontinue effexor start wellbutrin will repeat ECG CBT, motivatioanl , group therapy
[2018-12-28] MEDS ORDERED: Risperidone M TAB 2 MG PO SCH (22:00)
[2018-12-29 01:33] VITALS: O2SAT 98
--- NOTE | 2018-12-29 12:02 | PCM.PYCHPN ---
Psychiatric Progress Note - Psychiatric Progress Note Patient seen today, length of contact: pt evaluated discussed with team chart reviewed Patient Chief Complaint: I AM FEELING ANXIOUS ABOUT STOPPING THE GEODON Problems Identified/Issues Discussed: pt evaluated , feeling anxious about medication changes, discussed with pt that continuing with geodon could be harmful due to current possible cardiac side effects,pt reported non command auditory hallucinations at night ,putting him down and making him anxious d scussed increasing dose of risperidone pt anxious , needs alot of reassurance, supportive therapy and cbt provided , discussed changing wellbutrin to effexor, pt continues to have passive suicidal ideation, feeling hopeless denied active plan or intent on the unit , encouraged pt to attend groups and participate in treatment Medical Problems: about five hospitalizations in past five years , partial compliance Medication Change: Yes (START EFFEXOR) Medical Record Reviewed: Yes Mental Status Examination - Cognitive Function Orientation: Person, Place Memory: Intact Attention: Poor Concentration: Poor Association: WNL Fund of Knowledge: Poor Decription of patient's judgement and insights: partial insight poor judgment - Mood Mood: Depressed, Anxious - Affect Affect: Constricted, Depressed - Formal Thought Process Formal Thought Process: Hallucinations - Suicidal Ideation Suicidal Ideation: Yes - Homicidal Ideation Homicidal Ideation: No Goal/Treatment Plan - Goal/Treatment Plan Need for Continued Stay: Severe depression anxiety, Discharge may exacerbated symptoms Progress Toward Problem(s) and Goals/Treatment Plan: discontinue geodon gradually increase risperidone 3mg qhs qith cogentin 1mg qhs, increase gradually discontinue wellbutrin start effexor will repeat ECG CBT, motivatioanl , group therapy
[2018-12-29] MEDS: Risperidone M tab 1 MG PO SCH (21:17)
[2018-12-30] MEDS: Venlafaxine 37.5 mg ER Cap PO SCH (09:31)
--- NOTE | 2018-12-30 09:34 | PCM.PYCHPN ---
Psychiatric Progress Note - Psychiatric Progress Note Patient seen today, length of contact: Pt evaluated, case discussed w/ team, chart reviewed Patient Chief Complaint: "I'm seeing people and things." Problems Identified/Issues Discussed: Patient reports feeling acutely distressed due to experiencing visual hallucinations of people and creatures crawling on the floors and on the gaming. He reports that he had passing suicidal ideation this morning to hang himself, but denies acute suicidal ideation at this time and is able to contract for safety. Patient informed to tell staff if he has worsening psychosis or suicidal ideations again. He reports that he is anxious due to his medications being modified. Psychoeducation provided. Medication Change: No Medical Record Reviewed: Yes Consults ordered or reviewed: Medicine consult Mental Status Examination - Cognitive Function Orientation: Person, Place Memory: Intact Attention: Poor Concentration: Poor Association: WNL Fund of Knowledge: Poor Decription of patient's judgement and insights: Poor I/J - Mood Mood: Depressed, Anxious - Affect Affect: Constricted, Depressed - Formal Thought Process Formal Thought Process: Hallucinations Psychotic Thoughts and Behaviors: +AH/VH - Suicidal Ideation Suicidal Ideation: Yes Plan: Hang himself - Homicidal Ideation Homicidal Ideation: No Goal/Treatment Plan - Goal/Treatment Plan Need for Continued Stay: Severe depression anxiety, Discharge may exacerbated symptoms Progress Toward Problem(s) and Goals/Treatment Plan: Schizoaffective Disorder -Continue current medications -Individual and group therapy -Will monitor patient for safety -Psychoeducation -Disposition planning
[2018-12-30] MEDS: Risperidone M tab 1 MG PO SCH (21:05)
[2018-12-31] MEDS: Venlafaxine 37.5 mg ER Cap PO SCH (09:43)
--- NOTE | 2018-12-31 13:15 | PCM.PYCHPN ---
Psychiatric Progress Note - Psychiatric Progress Note Patient seen today, length of contact: Pt evaluated, case discussed w/ team, chart reviewed Patient Chief Complaint: I still feel down and I wish I am not alive Problems Identified/Issues Discussed: pt evaluated seen in his room, continues to be unkempt, not attending to his ADL'S reported feeling down due to being homeless and seeing no way out of his situation, feeling hopeless and helpless ,pt also continues to report auditory hallucinations, non command type of unclear voices and noise discussed discontinuing geodon and increasing risperidone, also increasing dose of effexor, no reported side effects CBT provided and encouraged pt to attend groups, pt reporting passive suicidal ideations without active plan on the unit denied command hallucinations Medical Problems: about five hospitalizations in past five years , partial compliance DSM 5 Symptoms Update: schizoaffective disorder cocaine abuse Medication Change: Yes (increase effexor and risperidone ) Medical Record Reviewed: Yes Mental Status Examination - Cognitive Function Orientation: Person, Place Memory: Intact Attention: Poor Concentration: Poor Association: WNL Fund of Knowledge: Poor - Mood Mood: Depressed, Anxious - Affect Affect: Constricted, Depressed - Formal Thought Process Formal Thought Process: Hallucinations - Suicidal Ideation Suicidal Ideation: Yes - Homicidal Ideation Homicidal Ideation: No Goal/Treatment Plan - Goal/Treatment Plan Need for Continued Stay: Severe depression anxiety, Discharge may exacerbated symptoms Progress Toward Problem(s) and Goals/Treatment Plan: discontinue geodon increase risperidone 3mg qhs and 1mg daily cogentin 1mg qhs, increase gradually increase [id number] will repeat ECG CBT, motivatioanl , group therapy
[2018-12-31] MEDS: Risperidone M tab 1 MG PO SCH (21:20)
[2019-01-01] MEDS: Risperidone M tab 1 MG PO SCH ×2 (09:13→21:02)
[2019-01-01] MEDS: Venlafaxine 75 mg ER Cap PO SCH (09:13)
--- NOTE | 2019-01-01 12:51 | PCM.PYCHPN ---
Psychiatric Progress Note - Psychiatric Progress Note Patient seen today, length of contact: Pt evaluated, case discussed w/ team, chart reviewed Patient Chief Complaint: the voices are less I only hear music Problems Identified/Issues Discussed: pt evaluated seen in day room, more interactive with staff and other patients, reported partial clearing of the auditory hallucinations, currently only hearing music , pt continues to be anxious about medications change, no current reported side effects of risperidone, continues to report low energy, discussed increasing effexor gradually pt denied any current active thoughts of self harm, denied command hallucinatio ns Medical Problems: about five hospitalizations in past five years , partial compliance DSM 5 Symptoms Update: schizoaffective disorder depressed Medication Change: No (increase effexor and risperidone ) Medical Record Reviewed: Yes Mental Status Examination - Cognitive Function Orientation: Person, Place Memory: Intact Attention: Poor Concentration: Poor Association: WNL Fund of Knowledge: Poor - Mood Mood: Depressed, Anxious - Affect Affect: Constricted, Depressed - Formal Thought Process Formal Thought Process: Hallucinations - Suicidal Ideation Suicidal Ideation: No - Homicidal Ideation Homicidal Ideation: No Goal/Treatment Plan - Goal/Treatment Plan Need for Continued Stay: Severe depression anxiety, Discharge may exacerbated symptoms Progress Toward Problem(s) and Goals/Treatment Plan: risperidone 3mg qhs and 1mg daily cogentin 1mg qhs, increase gradually [id number] will repeat ECG CBT, motivatioanl , group therapy
[2019-01-02] MEDS: Venlafaxine 75 mg ER Cap PO SCH (08:56)
[2019-01-02] MEDS: Risperidone M tab 1 MG PO SCH ×2 (08:56→21:01)
--- NOTE | 2019-01-02 15:15 | PCM.PYCHPN ---
Psychiatric Progress Note - Psychiatric Progress Note Patient seen today, length of contact: Pt evaluated, case discussed w/ team, chart reviewed Patient Chief Complaint: I am feeling better today Problems Identified/Issues Discussed: pt evaluated seen in day room, better groomed, and attending more to his ADL'S more interactive with staff and other patients, reported clearing of the auditory hallucinations, no current reported side effects of risperidone, REPOR FRANSISCO IMPROVED ENERGY LEVEL WITH INCREASING THE EFFEXOR pt denied any current active thoughts of self harm, denied command hallucinations Medical Problems: about five hospitalizations in past five years , partial compliance Medication Change: No Medical Record Reviewed: Yes Mental Status Examination - Cognitive Function Orientation: Person, Place Memory: Intact Attention: Poor Concentration: Poor Association: WNL Fund of Knowledge: Poor - Mood Mood: Depressed, Anxious - Affect Affect: Constricted, Depressed - Formal Thought Process Formal Thought Process: Hallucinations - Suicidal Ideation Suicidal Ideation: No - Homicidal Ideation Homicidal Ideation: No Goal/Treatment Plan - Goal/Treatment Plan Need for Continued Stay: Severe depression anxiety, Discharge may exacerbated symptoms Progress Toward Problem(s) and Goals/Treatment Plan: risperidone 3mg qhs and 1mg daily cogentin 1mg qhs, [id number] will repeat ECG CBT, motivatioanl , group therapy
[2019-01-03] MEDS: Risperidone M tab 1 MG PO SCH ×2 (09:00→21:24)
[2019-01-03] MEDS: Venlafaxine 150 mg ER Cap PO SCH (09:08)
--- NOTE | 2019-01-03 14:14 | PCM.PYCHPN ---
Psychiatric Progress Note - Psychiatric Progress Note Patient seen today, length of contact: Pt evaluated, case discussed w/ team, chart reviewed Patient Chief Complaint: I feel leveled with the new medications Problems Identified/Issues Discussed: pt evaluated seen in day room,attending more to his ADL.S presenting with brighter affect, reported clearing of the auditory hallucinations as he does not notice them anymore, no current reported side effects of medications pt denied any current active thoughts of self harm, stating feeling motivated to start partial program on discharge Medical Problems: about five hospitalizations in past five years , partial compliance DSM 5 Symptoms Update: schizoaffective disorder Medication Change: No Medical Record Reviewed: Yes Mental Status Examination - Cognitive Function Orientation: Person, Place Memory: Intact Attention: WNL Concentration: WNL Association: WNL Fund of Knowledge: Poor - Mood Mood: Anxious - Affect Affect: Constricted, Depressed - Speech Speech: Soft - Formal Thought Process Formal Thought Process: Circumstantial - Suicidal Ideation Suicidal Ideation: No - Homicidal Ideation Homicidal Ideation: No Goal/Treatment Plan - Goal/Treatment Plan Need for Continued Stay: Severe depression anxiety, Discharge may exacerbated symptoms Progress Toward Problem(s) and Goals/Treatment Plan: risperidone 3mg qhs and 1mg daily cogentin 1mg qhs, [id number] follow up on results of repeat ECG CBT, motivatioanl , group therapy
--- NOTE | 2019-01-03 19:08 | CARD ---
APPROVED REPORT Date of service: 01/03/2019 EKG Measurement Heart [id number] <Conclusion> Normal sinus rhythm Normal ECG
[2019-01-04] MEDS: Risperidone M tab 1 MG PO SCH (08:22)
[2019-01-04] MEDS: Venlafaxine 150 mg ER Cap PO SCH (08:22)
[2019-01-04 09:17] VITALS: BP 145/93; PULSE 84; RESP 17; TEMP 97.1
--- NOTE | 2019-01-04 12:29 | PCM.PYCHDC ---
Mental Status Examination - Mental Status Examination Orientation: Person, Place, Situation Memory: Intact Mood: Neutral Affect: Constricted Speech: Soft Attention: WNL Concentration: WNL Association: WNL Fund of Knowledge: WNL Formal Thought Process: Circumstantial Description of patient's judgement and insight: partial insight poor judgment Psychotic Thoughts and Behaviors: PT ON DISCHARGE DENIED PSYCHOTIC SYMPTOMS, NON ELICITED Suicidal Ideation: No Current Homicidal Ideation?: No Discharge Summary - Discharge Note Reason for Hospitalization: t is 43 ys old male with previous diagnosis of schizoaffective disorder, cocaine and stimulant abuse, was referred by his out patient psychiatrist to ER due to suicidal ideation with plan to drown himself in the river, pt has been increasingly depressed for the past few months as he became homeless , living in a detention and with multiple financial difficulties , pt reported he has been experiencing auditory hallucinations, telling him to hurt himself and that he continues to contemplate suicide , reported poor sleep , low energy poor motivation, not attending to ADL'S , denied active thoughts of self harm on the unit denied homicidal ideation pt reported occasional cocaine abuse last few weeks ago , utox negative Dr. Hernandez / collateral information. According to Dr. Hernandez, the patient has not been forthcoming. The patient has been feeling very suicidal for quite some time. In the middle of October, the patient has been living in [facility], due to being kicked out since she is part of a section 8. The patient has a history of hearing voices. A few days ago, the patient was going to the [facility], but then stopped himself. The pt will be referred to Partial Care, but does not seem to be comfortable w/ going to Partial Care. According to Dr. Hernandez, the patient doesnt do very well w/ change. Consultations:: List each consultation separately and include: 1. Reason for request. 2. Findings. 3. Follow-up Summary of Hospital Course include:: 1. Description of specific treatment plan utilized for patients during their course of treatmen. 2. Summarize the time- course for resolution of acute symptoms and/or regressed behaviors. 3. Describe issues identified and worked on during hospitalization. 4. Describe medication utilized. 5. Describe medical problems identified and treated. 6. Reassessment of suicide risk Summary of Hospital Course: pt on admission presented with depressed mood and affect, anhedonia, poor motivation, continued to have passive suicidal ideation, reported auditory hallucinations putting him down pt was on Geodon 100mg bid, it was noted on the Ek[facility] that the QTC interval was prolonged, 429 accordingly geodon was gradually discontinued and cross titrated with risperidone , pt was placed on risperidone 4mg and cogentin 1mg also celexa was discontinued and patient was started on effexor increased to 150mg daily pt gradually presented with less depressed mood , brighter affect, reported clearing off of the auditory hallucinations, no reported side effects of the medications, ECG repeated, noted decrease in qtc interval to 360with discontinuation of geodon motivational therapy provided in reference to cocaine abuse, also group and supportive therapy provided on discharge pt mental status was stable denied any current suicidal or homicidal ideation denied perceptual disturbances follow up arranged by psychotherapist social worker at [facility] partial program - Diagnosis (1) Schizoaffective disorder Current Visit: Yes Status: Acute - Final Diagnosis (DSM 5) Condition upon Discharge: STABLE DSM 5: schizoaffective disorder depressed cocaine abuse Disposition: HOME/ ROUTINE Follow-up Treatment Plan: risperidone 3mg qhs and 1mg daily cogentin 1mg qhs, [id number] follow up on results of repeat ECG CBT, motivatioanl , group therapy Prescriptions/Medication Reconciliation: Benztropine [Cogentin] 1 mg PO HS 30 Days #30 tab risperiDONE [RisperDAL Tab] 1 mg PO DAILY 30 Days #30 tab risperiDONE [RisperDAL Tab] 3 mg PO HS 30 Days #30 tab traZODone [Desyrel] 100 mg PO HS PRN 30 Days #30 tab PRN Reason: Insomnia Venlafaxine [Effexor XR] 150 mg PO DAILY 30 Days #30 cer - Antipsychotic Medications Pt discharged on 2 or more routine antipsychotic medications: No
== END 2019-01-04 01:50 | disposition home or self-care (01) | DRG 430 ==
LOC: H.ER 12:49 → H.ERHOLD 15:40 → H.PSYCH 18:26
PROVIDERS: ADMIT Psychiatry & Neurology Psychiatry; ATTEND Psychiatry & Neurology Psychiatry
PROC: GZHZZZZ Group Psychotherapy (ICD-10-PCS; principal; 2018-12-26)
PROC: GZ58ZZZ Individual Psychotherapy, Cognitive-Behavioral (ICD-10-PCS; 2018-12-26)
DX: F25.1 Schizoaffective disorder, depressive type (principal); F14.10 Cocaine abuse, uncomplicated; F15.10 Other stimulant abuse, uncomplicated; F43.10 Post-traumatic stress disorder, unspecified; R45.851 Suicidal ideations; J45.909 Unspecified asthma, uncomplicated; R73.03 Prediabetes; Z59.0 Homelessness